=== PATIENT | female | born 1970 | race African-American/Black ===

== ENCOUNTER 2017-07-19 18:54 | Emergency (ER) | payer OTHER ==
[2017-07-19 19:11] VITALS: BP 129/75; BMI 36.1
[2017-07-19] MEDS ORDERED: IBUPROFEN 400 MG TABLET (FP) PO ONE ×2 (20:13→20:47)
[2017-07-19 21:10] LABS: URINE APPEARANCE CLEAR; URINE BILIRUBIN NEGATIVE (NEGATIVE); URINE BLOOD 1+ (NEGATIVE); URINE COLOR LTYELLOW; URINE GLUCOSE (UA) NEGATIVE (NEGATIVE); URINE KETONE TRACE (NEGATIVE); URINE NITRITE NEGATIVE (NEGATIVE); URINE UROBILINOGEN NEGATIVE mg/dL (0.2-1.0)
[2017-07-19 21:11] LABS: URINE LEUK ESTERASE 1+ (NEGATIVE); URINE PROTEIN 1+ (NEGATIVE)
[2017-07-19 21:14] LABS: EPI CELLS RARE /HPF (FEW); URINE BACTERIA RARE /hpf (NONE SEEN); URINE MUCUS RARE
[2017-07-19 21:47] VITALS: PULSE 90; TEMP 99.6
--- NOTE | 2017-07-19 21:52 | PDOC ---
History of Present Illness - General Chief Complaint: Cold Symptoms Stated Complaint: PAIN Time Seen by Provider: 07/19/17 19:44 History Source: Patient Exam Limitations: No Limitations - History of Present Illness Initial Comments: 07/19/17 21:47 CC sudden onset of severe body, generalized with fever x today; No cough, some sore throat also same lower abd pain; pt is scheduled fo Abd and pelvis MRI with contrast on Thursday from Dr Hdz for lower abd mass; no dysuria Timing/Duration: 4-6 hours Severity: mild Modifying Factors: worse with: medication, movement Associated Symptoms: reports: fever/chills, headaches, loss of appetite, malaise. denies: cough Past History - Past Medical History Allergies/Adverse Reactions: Allergies Allergy/AdvReac Type Severity Reaction Status Date / Time No Known Allergies Allergy Verified 07/19/17 19:11 Home Medications: Ambulatory Orders Amlodipine Besylate 5 mg PO ASDIR 07/19/17 Naproxen [Naprosyn -] 500 mg PO BID 07/19/17 Nitrofurantoin Monohyd/M-Cryst [Macrobid -] 100 mg PO BID #14 capsule 07/19/17 COPD: No Other medical history: Fibroids - Suicide/Smoking/Psychosocial Hx Smoking History: Never smoked Have you smoked in the past 12 months: No Information on smoking cessation initiated: No Hx Alcohol Use: No Drug/Substance Use Hx: No Substance Use Type: None Review of Systems - Review of Systems Constitutional: Yes: Chills, Fever, Malaise HEENTM: Yes: Nose Congestion. No: Nose Pain, Nose Bleeding Respiratory: Yes: Cough Cardiac (ROS): No: Symptoms Reported, Chest Pain ABD/GI: Yes: Other (same chronic abd pain, no changes). No: Diarrhea, Nausea, Vomiting : No: Burning, Dysuria, Discharge, Flank Pain, Hematuria, Incontinence Musculoskeletal: Yes: Joint Pain, Muscle Pain Integumentary: No: Bruising Neurological: No: Symptoms reported *Physical Exam - Vital Signs Last Vital Signs Temp Pulse Resp BP Pulse Ox 99.6 F 90 18 129/75 98 07/19/17 21:42 07/19/17 21:46 07/19/17 19:05 07/19/17 19:05 07/19/17 19:05 - Physical Exam General Appearance: Yes: Appropriately Dressed. No: Apparent Distress HEENT: positive: Nasal Congestion, Rhinorrhea. negative: TMs Normal, Pharynx Normal, Thrush Neck: negative: Tender, Rigid Respiratory/Chest: positive: Lungs Clear. negative: Chest Tender Cardiovascular: positive: Regular Rhythm, Regular Rate, Murmur Gastrointestinal/Abdominal: positive: Normal Bowel Sounds, Soft, Tenderness, Other (mild periumbicus pain). negative: Organomegaly, Guarding, Rebound ED Treatment Course - ADDITIONAL ORDERS Additional order review: Laboratory Results 07/19/17 07/19/17 21:00 21:00 Urine Color Ltyellow Urine Appearance Clear Urine pH 7.0 Ur Specific Dodge 1.011 Urine Protein 1+ H Urine Glucose (UA) Negative Urine Ketones Trace H Urine Blood 1+ H Urine Nitrite Negative Urine Bilirubin Negative Urine Urobilinogen Negative Ur Leukocyte Esterase 1+ H Urine WBC (Auto) 19 Urine RBC (Auto) <1 Ur Epithelial Cells Rare Urine Bacteria Rare Urine Mucus Rare Urine HCG, Qual Negative 07/19/17 20:10 Influenza Types A,B Antigen (NORMA) - Final Nasopharyngeal Swab - Final - Medications Given in the ED: ED Medications Discontinued Medications Generic Name Dose Route Start Last Admin Trade Name Freq PRN Reason Stop Dose Admin Ibuprofen 400 mg 07/19/17 20:47 07/19/17 20:48 Motrin - PO 07/19/17 20:48 400 mg ONCE ONE Administration Medical Decision Making - Medical Decision Making 07/19/17 21:52 flu symptoms with negative flu A/B; uUA notes some blood and WBCs; will treat for UTI, UC pending; pt will contact Dr Rondon tomorrow for reevaluation; feeling much better post motrin in ED started macrobid here *DC/Admit/Observation/Transfer Diagnosis at time of Disposition: UTI (urinary tract infection) Qualifiers: Urinary tract infection type: acute cystitis Hematuria presence: with hematuria Qualified Code(s): N30.01 - Acute cystitis with hematuria - Discharge Dispostion Disposition: HOME Condition at time of disposition: Stable Admit: No - Prescriptions Prescriptions: Nitrofurantoin Monohyd/M-Cryst [Macrobid -] 100 mg PO BID #14 capsule - Referrals - Patient Instructions Additional Instructions: please return to ED for increased symptoms; call Dr Barton in am and discusse illness; Urind culture will be ready in 2 days; motrin 400mg for fever and pain ; very important to have MRI on Thursday - Post Discharge Activity
[2017-07-19] MEDS ORDERED: NITROFURANTOIN MACROCRYSTAL 50 MG CAPSULE (FP) ONE (21:59)
[2017-07-19] MEDS ORDERED: NITROFURANTOIN MACROCRYSTAL 50 MG CAPSULE (FP) PO SCH (22:00)
== END 2017-07-19 22:02 | disposition home or self-care (01) ==
LOC: JERFT 18:54
DX: N30.01 Acute cystitis with hematuria (principal)
CPT/HCPCS: 81003; 81015; 84703; 87086; 87186; 87804; 99281-25

== ENCOUNTER 2018-02-17 06:58 | Day surgery (SDC) | payer OTHER ==
[2018-02-16 15:09] VITALS: BMI 35.4
[2018-02-17 08:57] VITALS: TEMP 97.9
[2018-02-17 10:08] VITALS: BP 121/71; PULSE 66
== END 2018-02-17 10:08 | disposition home or self-care (01) ==
LOC: JASU-ENDO 06:58
PROVIDERS: ATTEND Internal Medicine Gastroenterology
PROC: 0DJD8ZZ Inspection of Lower Intestinal Tract, Via Natural or Artificial Opening Endoscopic (ICD-10-PCS; principal; 2018-02-17 08:00)
DX: Z51.11 Encounter for antineoplastic chemotherapy (principal)
CPT/HCPCS: 84703

== ENCOUNTER 2018-05-06 08:36 | Day surgery (SDC) | payer OTHER ==
[2018-04-26 12:29] VITALS: BMI 33.6
[2018-05-06] MEDS ORDERED: BUPIVACAINE HCL/PF 2.5 MG/ML - 30 ML VIAL IJ ONE (11:26)
[2018-05-06] MEDS ORDERED: ONDANSETRON 4 MG/2 ML VIAL IVPUSH PRN (12:26)
[2018-05-06] MEDS ORDERED: PROMETHAZINE HCL 25 MG/1 ML VIAL IVPUSH PRN (12:26)
[2018-05-06] MEDS ORDERED: oxyCODONE HCL 5 MG TABLET PO PRN ×2 (12:26)
[2018-05-06] MEDS ORDERED: ONDANSETRON 4 MG/2 ML VIAL ONE (12:39)
--- NOTE | 2018-05-06 12:54 | OP ---
Operative Note - Note: Operative Date: 05/06/18 Pre-Operative Diagnosis: R knee osteochondral injury Operation: right knee arthroscopy w excision of loose body, partial lateral menisectomy, microfracture Post-Operative Diagnosis: Same as Pre-op Surgeon: Pedro Mcbride Anesthesiologist/MARKETING BUDGET ANALYST: Evin Roblero Anesthesia: General Operative Report Dictated: Yes
[2018-05-06] MEDS ORDERED: oxyCODONE HCL 5 MG TABLET ONE (13:32)
[2018-05-06 13:42] VITALS: TEMP 97.9
--- NOTE | 2018-05-06 13:54 | OP ---
DATE OF OPERATION: 05/06/2018 PREOPERATIVE DIAGNOSIS: Right knee osteochondral injury, loose body. POSTOPERATIVE DIAGNOSIS: Right knee osteochondral injury, loose body, lateral meniscal tear. SURGEON: Pedro Mcbride MD PROCEDURE: Right knee arthroscopy with excision of loose body, partial lateral meniscectomy, microfracture. ANESTHESIA: General. POSTOPERATIVE CONDITION: Stable. COMPLICATIONS: None. INDICATIONS: This is a pleasant 48-year-old female who had been suffering from right knee pain. She has failed to improve with conservative measures, and therefore, elected preoperative care. Operative risks were reviewed in detail including bleeding, infection, neurovascular injury, need for further surgery, postoperative pain and stiffness, progression of osteoarthritis. We discussed medical risks such as heart attack, stroke, DVT, PE, and . I discussed the recovery from the procedure and need for physical therapy. I addressed all of the patient's questions and concerns. She voices understanding and elected to proceed. DESCRIPTION OF PROCEDURE: The patient was brought to the operating room where general anesthesia was administered. The right lower extremity was then prepped and draped in the usual sterile fashion. A preoperative dose of antibiotics was given, and the usual time-out procedure was performed. The portal sites were then marked out and injected subcutaneously with 0.25% Marcaine. A lateral portal was then established. The arthroscope was passed into the knee. Examination of the patellofemoral joint demonstrated high-grade partial thickness chondral loss in both the trochlear and patellar sides. Passing the arthroscope into the notch demonstrated intact ACL. The arthroscope was now passed into the medial compartment. Medial portal was established under spinal needle localization. Visualization of the medial compartment demonstrated a large loose body. There was chondral fissuring and partial loss along the medial femoral condyle. The loose body was now excised. This was done through a medial portal. The lateral compartment was now examined. There was a lateral meniscal tear seen in the body. In addition, there was an additional loose body sitting inferior to the lateral meniscus. The loose body was removed. The meniscus tear was debrided using a shaver. Utilizing a 6.2 K-wire, a microfracture was applied to some of the cartilage fissuring on the medial femoral condyle as well as some of the loose flaps in the trochlea. The excess fluid was now withdrawn from the knee. The portals were then sutured using 3-0 nylon. The patient was extubated and transferred to the recovery room in stable condition. Ruth JACOB/[id number]
[2018-05-06 15:48] VITALS: BP 136/77; PULSE 76
--- NOTE | 2018-05-14 12:07 | PATH ---
Surgical Pathology Report Patient Name: LOPEZ SEGUNDO [facility]. Rec. #: [id number] /Age/Gender: 1970 (Age: 48) / F Account: [id number] Location: [facility] AMBUL[facility] Taken: 05/06/2018 Received: 05/06/2018 Reported: 05/14/2018 Physicians: Pedro Mcbride M.D. Specimen(s) Received RIGHT KNEE LOOSE BODIES Clinical History Right knee chondral injury and loose body Final Diagnosis LOOSE BODIES, RIGHT KNEE, REMOVAL: LOOSE BODIES. Electronically Signed Manda Urbano M.D. Gross Description Received in formalin labeled "right knee loose bodies," are 2 leyva portions of cartilage measuring 0.6 x 0.3 x 0.1 cm and 2.0 x 1.0 x 0.2 cm. The specimens are submitted in toto in one cassette. /05/07/201805/07/2018
== END 2018-05-06 14:55 | disposition home or self-care (01) ==
LOC: FASU 08:36
PROVIDERS: ATTEND Orthopaedic Surgery Sports Medicine
PROC: 0SBC4ZZ Excision of Right Knee Joint, Percutaneous Endoscopic Approach (ICD-10-PCS; 2018-05-06)
PROC: 0SQC4ZZ Repair Right Knee Joint, Percutaneous Endoscopic Approach (ICD-10-PCS; 2018-05-06)
PROC: 0SCC4ZZ Extirpation of Matter from Right Knee Joint, Percutaneous Endoscopic Approach (ICD-10-PCS; principal; 2018-05-06 11:53)
DX: M23.200 Derangement of unspecified lateral meniscus due to old tear or injury, right knee (principal); M24.10 Other articular cartilage disorders, unspecified site; M23.41 Loose body in knee, right knee
CPT/HCPCS: 84703; 88304-TC; 94760